=== PATIENT | male | born 1990 | race Caucasian/White ===

== ENCOUNTER 2019-07-24 23:50 | Emergency (ER) | payer SELFPAY ==
[~2019-07-24] VITALS: Ht 177.8 cm; Wt 73.0 kg
[2019-07-25] MEDS ORDERED: THIAMINE 100MG TABLET PO ONE
--- NOTE | 2019-07-25 00:59 | NUR ---
Pt sleeping comfortably on gurney. Rr even and unlabored. NADN.
--- NOTE | 2019-07-25 02:00 | NUR ---
Pt sleeping comfortably on gurney. Rr even and unlabored. NADN.
--- NOTE | 2019-07-25 03:30 | NUR ---
Pt sleeping comfortably on gurney. Rr even and unlabored. NADN.
[2019-07-25 04:19] VITALS: BP 102/51
--- NOTE | 2019-07-25 04:28 | NUR ---
PT AMBULATE OUT TO DISCHARGE DESK WITH STEADY GAIT AND PROVIDED WITH A CAB VOUCHER, PLEASANT YOUNG MAN, ENCOURAGED TO PLEASE STOP DRINKING.
== END 2019-07-25 04:30 | disposition home or self-care (01) ==
LOC: ED 07-25 02:17
DX: F10.229 Alcohol dependence with intoxication, unspecified (principal); F17.210 Nicotine dependence, cigarettes, uncomplicated
CPT/HCPCS: 99283